=== PATIENT | female | born 1995 | race Caucasian/White ===

== ENCOUNTER 2018-06-14 03:31 | Emergency (ER) | payer SELFPAY ==
[2018-06-14 03:35] VITALS: BMI 22.3
[2018-06-14 03:42] VITALS: RESP 19; O2SAT 100
--- NOTE | 2018-06-14 03:54 | ED PDOC ---
Arrival/HPI - General Chief Complaint: Fever Time Seen by Provider: 06/14/18 03:42 Historian: Patient, Spouse - History of Present Illness Narrative History of Present Illness (Text): 06/14/18 03:52 Tami Lou is a 23 year old female who presents to the ED accompanied by complaining of fever. states patient has been experiencing intermittent fever since yesterday with associated sore throat, worse with swallowing. states patient was seen by her PMD for similar complaint and placed on Zithromax. Patient denies any chest pain, shortness of breath, abdominal pain, vomiting, diarrhea, headache, dizziness, or any other complaints. Symptom Onset: Gradual Symptom Course: Unchanged Activities at Onset: Light Context: Home Past Medical History - Provider Review Nursing Documentation Reviewed: Yes - Psychiatric Hx Substance Use: No Family/Social History - Physician Review Nursing Documentation Reviewed: Yes Family/Social History: Unknown Family HX Smoking Status: Never Smoked Hx Alcohol Use: No Hx Substance Use: No Allergies/Home Meds Allergies/Adverse Reactions: Allergies No Known Allergies Allergy (Verified 06/14/18 03:35) Home Medications: Home Meds Medication Instructions Recorded Confirmed Azithromycin [Zithromax] 250 mg PO DAILY 06/14/18 06/14/18 Review of Systems - Physician Review All systems were reviewed & negative as marked: Yes - Review of Systems Constitutional: Fevers Eyes: Normal ENT: Sore Throat Respiratory: Normal. absent: SOB, Cough Cardiovascular: Normal. absent: Chest Pain Gastrointestinal: Normal. absent: Abdominal Pain, Diarrhea, Nausea, Vomiting Genitourinary Female: Normal. absent: Dysuria, Frequency, Hematuria, Urine Output Changes Musculoskeletal: Normal. absent: Back Pain, Neck Pain Skin: Normal. absent: Rash Neurological: Normal. absent: Headache, Dizziness Endocrine: Normal Hemo/Lymphatic: Normal Psychiatric: Normal Physical Exam Vital Signs Reviewed: Yes Vital Signs Temp Pulse Resp BP Pulse Ox 06/14/18 03:36 102.6 F H 122 H 19 103/46 L 100 Temperature: Febrile Blood Pressure: Normal Pulse: Tachycardic Respiratory Rate: Normal Appearance: Positive for: Well-Appearing, Non-Toxic, Comfortable Pain Distress: None Mental Status: Positive for: Alert and Oriented X 3 - Systems Exam Head: Present: Atraumatic, Normocephalic Pupils: Present: PERRL Extroacular Muscles: Present: EOMI Conjunctiva: Present: Normal Ears: Present: Normal, NORMAL TM, Normal Canal. No: Erythema, TM Bulging, Fluid, TM Perf Mouth: Present: Moist Mucous Membranes Pharnyx: Present: ERYTHEMA (Minimal erythema to posterior pharynx). No: EXUDATE, TONSILS ENLARGED, Peritonsilar Swelling, Uvular Deviation, Muffled/Hoarse Voice, Strider, Soft Palate/Uvular Edema Nose (External): Present: Atraumatic Nose (Internal): Present: Normal Inspection Neck: Present: Normal Range of Motion. No: Meningeal Signs, MIDLINE TENDERNESS, Paraspinal Tenderness Respiratory/Chest: Present: Clear to Auscultation, Good Air Exchange. No: Respiratory Distress, Accessory Muscle Use Cardiovascular: Present: Regular Rate and Rhythm, Normal S1, S2. No: Murmurs Abdomen: No: Tenderness, Distention, Peritoneal Signs Back: Present: Normal Inspection. No: CVA Tenderness, Midline Tenderness, Paraspinal Tenderness Upper Extremity: Present: Normal Inspection. No: Cyanosis, Edema Lower Extremity: Present: Normal Inspection. No: Edema Neurological: Present: GCS=15, CN II-XII Intact, Speech Normal Skin: Present: Warm, Dry, Normal Color. No: Rashes Psychiatric: Present: Alert, Oriented x 3, Normal Insight, Normal Concentration Medical Decision Making ED Course and Treatment: 06/14/18 03:52 Impression: 23 year old female c/o fever and sore throat. Plan: -- EKG -- CXR -- Rapid strep -- Rapid influenza -- Labs, VBG, blood cultures -- UA, urine cultures -- Reassess and disposition Progress Notes: 06/14/18 04:09 CXR reviewed, shows no acute processes. 06/14/18 04:56 Reviewed EKG, sinus tachycardia at 122 bpm. Non-specific T wave changes. 06/14/18 05:34 On reassessment, patient is awake, alert, and feels much better following treatment. Discussed results and plan with patient. Patient verbalizes understanding and is agreeable with plan. All questions answered. Patient stable for discharge. - Lab Interpretations I have reviewed the lab results: Yes - RAD Interpretation [employer] Hemmer: ED Physician - EKG Interpretation Interpreted by ED Physician: Yes Type: 12 lead EKG - Scribe Statement The provider has reviewed the documentation as recorded by the Scribe Shaila Maggie All medical record entries made by the Ashishibthais were at my direction and personally dictated by me. I have reviewed the chart and agree that the record accurately reflects my personal performance of the history, physical exam, medical decision making, and the department course for this patient. I have also personally directed, reviewed, and agree with the discharge instructions and disposition. Disposition/Present on Arrival - Present on Arrival Any Indicators Present on Arrival: No History of DVT/PE: No History of Uncontrolled Diabetes: No Urinary Catheter: No History of Decub. Ulcer: No History Surgical Site Infection Following: None - Disposition Have Diagnosis and Disposition been Completed?: Yes Diagnosis: Viral syndrome, Pharyngitis Disposition: HOME/ ROUTINE Disposition Time: 05:30 Patient Plan: Discharge Patient Problems: Current Active Problems Problem Status Onset Pharyngitis Acute Viral syndrome Acute Condition: GOOD Discharge Instructions (ExitCare): Sore Throat, Adult (DC), Viral Syndrome (DC) Additional Instructions: Drink plenty of liquids/Tylenol for fever as directed/continue meds prescribed by your doctor/follow up with your doctor this week/any recurrent worsening symptoms return to the emergency room Forms: [employer] (Turkmen)
[2018-06-14] MEDS ORDERED: Sodium Chloride 0.9% 1,500 ML IV STA (03:59)
[2018-06-14 04:22] LABS: VENOUS BLOOD GAS BASE EXCESS -0.4 mmol/L (0.0-2.0); VENOUS BLOOD GAS PO2 46 mm/Hg (30-55); VENOUS BLOOD PH 7.36 (7.32-7.43)
[2018-06-14 04:39] LABS: INR 1.22; PARTIAL THROMBOPLASTIN TIME 27.2 Seconds (25.1-36.5)
[2018-06-14 04:39] LABS: PH,URINE 6.5 (4.7-8.0); URINE BILIRUBIN NEGATIVE (NEGATIVE); URINE BLOOD NEGATIVE (NEGATIVE); URINE GLUCOSE (UA) NEGATIVE (NEGATIVE); URINE LEUKOCYTE ESTERASE NEGATIVE Leu/uL (NEGATIVE); URINE PROTEIN >=300 mg/dL (<30 mg/dL); URINE UROBILINOGEN 0.2 E.U./dL (<1 E.U./dL)
[2018-06-14 04:41] LABS: MEAN CELL VOLUME 84.9 fl (80.0-105.0); MEAN CORPUSCULAR HEMOGLOBIN 28.9 pg (25.0-35.0); MEAN PLATELET VOLUME 11.1 fl (7.0-11.0); RBC 4.5 10^6/uL (3.5-6.1); RED CELL DISTRIBUTION WIDTH 11.9 % (11.5-14.5); WHITE BLOOD COUNT 3.6 10^3/ul (4.5-11.0)
[2018-06-14 04:46] LABS: ALB/GLOB RATIO 1.2 (1.1-1.8); ALBUMIN 4.6 g/dL (3.0-4.8); ALT/SGPT 20 U/L (7-56); AST/SGOT 28 U/L (14-36); BLOOD UREA NITROGEN 10 mg/dL (7-21); CALCIUM 9.3 mg/dL (8.4-10.5); GFR NON-AFRICAN AMERICAN > 60
[2018-06-14 04:47] LABS: URINE APPEARANCE SL CLOUDY (CLEAR); URINE COLOR YELLOW (YELLOW)
[2018-06-14 04:52] LABS: URINE RBC 0 - 2 /hpf (0-2)
[2018-06-14 04:53] LABS: URINE BACTERIA FEW (NEG); URINE WBC 0 - 2 /hpf (0-6)
[2018-06-14 05:25] VITALS: BP 90/46; PULSE 100
[2018-06-14 05:37] VITALS: TEMP 98.5
--- NOTE | 2018-06-14 09:10 | CARD ---
APPROVED REPORT Date of service: 06/14/2018 EKG Measurement Heart [id number] <Conclusion> Sinus tachycardia RSR' or QR pattern in V1 suggests right ventricular conduction delay Nonspecific T wave abnormality Abnormal ECG
--- NOTE | 2018-06-14 10:15 | RAD ---
Date of service: 06/14/2018 HISTORY: Sepsis Patient COMPARISON: No prior. FINDINGS: LUNGS: No active pulmonary disease. PLEURA: No significant pleural effusion identified, no pneumothorax apparent. CARDIOVASCULAR: Normal. OSSEOUS STRUCTURES: No significant abnormalities. VISUALIZED UPPER ABDOMEN: Normal. OTHER FINDINGS: None. IMPRESSION: No active disease.
== END 2018-06-14 05:54 | disposition home or self-care (01) ==
LOC: EDBD → ED 03:31
DX: B34.9 Viral infection, unspecified (principal); J02.9 Acute pharyngitis, unspecified
CPT/HCPCS: 71045; 80053; 81001; 82803; 85027; 85610; 85730; 87040; 87070; 87086; 87430; 87804; 93005; 99284; J7030